=== PATIENT | female | born 1945 | race Caucasian/White ===

== ENCOUNTER 2018-11-12 13:38 | Emergency (ER) | payer MEDICARE, OTHER ==
[~2018-11-12] VITALS: Ht 160 cm; Wt 54.5 kg
[2018-11-12 14:14] LABS: BASO % 0.3 % (0.0-2.0); EOS % 0.3 % (0-4.0); GRAN # 4.4 (1.4-6.5); GRAN % 72.3 % (42.2-75.2); HEMATOCRIT 41.5 % (37.0-47.0); LYMPH % 16.9 % (20.0-51.0); MEAN CELL VOLUME 96 fl (80.0-100.0); MEAN CORPUSCULAR HEMOGLOBIN 32 pg (27.0-31.0); MEAN CORPUSCULAR HGB CONC 34 g/dl (33.0-37.0); MEAN PLATELET VOLUME 11.2 fl (7.4-10.4); MONO # 0.6 (0.1-0.6); MONO % 9.9 % (1.7-9.3); PLATELET COUNT 165 K/mm3 (130-400); RED BLOOD COUNT 4.32 M/mm3 (4.10-5.30); REDCELL DISTRIBUTION WIDTH-CV 13.1 % (11.5-14.5)
[2018-11-12] MEDS ORDERED: BETAPACE 80MG80 MG PO (14:18)
[2018-11-12 14:26] LABS: ALBUMIN 3.9 gm/dL (3.5-5.0); BILIRUBIN,TOTAL 0.8 mg/dL (0.0-1.0); CALCIUM 8.9 mg/dL (8.4-10.2); CREATININE, serum 0.72 mg/dL (0.52-1.25); POTASSIUM 4.3 mmol/L (3.4-5.0); TOTAL PROTEIN 7.6 gm/dL (6.4-8.2)
[2018-11-12] MEDS ORDERED: AMOXICILLIN 8751 TAB PO (14:53)
[2018-11-12 15:33] LABS: COLLECTION METHOD CLEAN CATCH
[2018-11-12 15:40] VITALS: BP 117/63; PULSE 65; TEMP 98
[2018-11-12 15:54] LABS: MUCOUS Present /lpf; PH 5 (5-8); SQUAMOUS EPITHELIAL 0-2 /hpf; URINE APPEARANCE Clear; URINE BACTERIA None Seen /hpf; URINE BILIRUBIN Negative (NEGATIVE); URINE BLOOD 1+ (NEGATIVE); URINE COLOR Yellow; URINE GLUCOSE Negative (NEGATIVE); URINE KETONE Negative (NEGATIVE); URINE LEUKOCYTE ESTERASE Trace (NEGATIVE); URINE NITRATE Negative (NEGATIVE); URINE PROTEIN(semi-quant) 1+ (NEGATIVE); URINE UROBILINOGEN Negative (NEGATIVE)
== END 2018-11-12 15:40 | disposition home or self-care (01) ==
LOC: COL.ER 13:38
PROVIDERS: Family Medicine
DX: I48.92 Unspecified atrial flutter (principal); J18.1 Lobar pneumonia, unspecified organism
CPT/HCPCS: A4216; J0696; J7030

== ENCOUNTER 2021-06-23 21:22 | Emergency (ER) | payer MEDICARE, OTHER ==
[~2021-06-23] VITALS: Ht 160 cm; Wt 54.5 kg
[~2021-06-23 21:22] MED LIST: AMOXICILLIN 8751 TAB PO; BETAPACE 80MG80 MG PO
[2021-06-23 23:16] LABS: COLLECTION METHOD CLEAN CATCH
[2021-06-23 23:24] LABS: PH 5 (5-8); SQUAMOUS EPITHELIAL None Seen /hpf; URINE APPEARANCE Clear; URINE BACTERIA None Seen /hpf; URINE BILIRUBIN Negative (NEGATIVE); URINE BLOOD Negative (NEGATIVE); URINE COLOR Yellow; URINE GLUCOSE 1+ (NEGATIVE); URINE KETONE Negative (NEGATIVE); URINE LEUKOCYTE ESTERASE 1+ (NEGATIVE); URINE NITRATE Negative (NEGATIVE); URINE PROTEIN(semi-quant) Negative (NEGATIVE); URINE RBC 0-2 /hpf; URINE UROBILINOGEN Negative (NEGATIVE)
[2021-06-23] MEDS ORDERED: OMNICEF 300MG300 MG PO (23:50)
[2021-06-24 00:01] VITALS: BP 138/73; PULSE 68; TEMP 98.9
[2021-08-12] MEDS ORDERED: NAPROSYN500 MG PO (21:19)
== END 2021-06-24 00:05 | disposition home or self-care (01) ==
LOC: COL.ER 21:22
PROVIDERS: Emergency Medicine
DX: N30.90 Cystitis, unspecified without hematuria (principal); R73.9 Hyperglycemia, unspecified; I10 Essential (primary) hypertension

== ENCOUNTER 2022-02-15 14:39 | Emergency (ER) | payer MEDICARE, OTHER ==
[~2022-02-15] VITALS: Ht 157.5 cm; Wt 61.4 kg
[~2022-02-15 14:39] MED LIST changes: +NAPROSYN500 MG PO; +OMNICEF 300MG300 MG PO
[2022-02-15 15:00] VITALS: TEMP 97.6
[2022-02-15 15:53] LABS: COLLECTION METHOD CLEAN CATCH
[2022-02-15 16:04] LABS: MUCOUS Present (NOT PRESENT); PH 6 (5-8); SQUAMOUS EPITHELIAL 0-2 /hpf (0-10); URINE APPEARANCE Hazy (CLEAR/HAZY); URINE BACTERIA Rare /hpf (NONE SEEN); URINE BILIRUBIN Negative (NEGATIVE); URINE BLOOD Negative (NEGATIVE); URINE COLOR Yellow (YELLOW); URINE GLUCOSE Negative (NEGATIVE); URINE KETONE Negative (NEGATIVE); URINE LEUKOCYTE ESTERASE 3+ (NEGATIVE); URINE NITRATE Negative (NEGATIVE); URINE PROTEIN(semi-quant) 1+ (NEGATIVE); URINE UROBILINOGEN Negative (NEGATIVE)
[2022-02-15 16:21] LABS: BASO % 0.3 % (0.0-2.0); EOS % 0.6 % (0.0-4.0); GRAN # 5.4 K/mm3 (1.4-6.5); HEMATOCRIT 38.9 % (37.0-47.0); HEMOGLOBIN 13.5 g/dl (12.5-16.0); LYMPH # 0.9 K/mm3 (1.2-3.4); LYMPH % 13.6 % (20.0-51.0); MEAN CELL VOLUME 94 fl (80.0-100.0); MEAN CORPUSCULAR HEMOGLOBIN 33 pg (27-31); MEAN CORPUSCULAR HGB CONC 35 g/dl (33.0-37.0); MONO # 0.3 K/mm3 (0.1-0.6); MONO % 5.1 % (1.7-9.3); PLATELET COUNT 164 K/mm3 (130-400); RED BLOOD COUNT 4.14 M/mm3 (4.10-5.30)
[2022-02-15 16:36] LABS: ALBUMIN 3.7 gm/dL (3.4-4.8); C-REACTIVE PROTEIN 0.16 mg/dL (0.00-0.50); CALCIUM 8.8 mg/dL (8.4-10.2); CREATININE, serum 0.75 mg/dL (0.57-1.11); POTASSIUM 4.2 mmol/L (3.5-4.5); TOTAL PROTEIN 6.9 gm/dL (6.2-8.1)
[2022-02-15] MEDS ORDERED: OMNICEF 300MG300 MG PO (17:16)
[2022-02-15 17:53] VITALS: BP 144/78; PULSE 59
== END 2022-02-15 17:53 | disposition home or self-care (01) ==
LOC: COL.ER 14:39
PROVIDERS: Family Medicine
DX: F32.A Depression, unspecified (principal); R53.1 Weakness; N39.0 Urinary tract infection, site not specified
CPT/HCPCS: J2405; J7120

== ENCOUNTER 2022-03-04 19:52 | Inpatient (IN) | payer MEDICARE, OTHER ==
[~2022-03-04] VITALS: Ht 157.5 cm; Wt 69.3 kg
[2022-03-04] MEDS ORDERED: PRISTIQ25 MG PO (20:41)
[2022-03-04 21:04] LABS: BASO % 0.3 % (0.0-2.0); EOS # 0.1 K/mm3 (0.0-0.7); EOS % 1.5 % (0.0-4.0); GRAN # 3.1 K/mm3 (1.4-6.5); GRAN % 52.2 % (42.2-75.2); HEMATOCRIT 41.5 % (37.0-47.0); HEMOGLOBIN 14.1 g/dl (12.5-16.0); LYMPH # 2.1 K/mm3 (1.2-3.4); LYMPH % 36.6 % (20.0-51.0); MEAN CELL VOLUME 97 fl (80.0-100.0); MEAN CORPUSCULAR HEMOGLOBIN 33 pg (27-31); MEAN CORPUSCULAR HGB CONC 34 g/dl (33.0-37.0); MEAN PLATELET VOLUME 11.6 fl (7.4-10.4); MONO # 0.5 K/mm3 (0.1-0.6); MONO % 8.9 % (1.7-9.3); PLATELET COUNT 201 K/mm3 (130-400); RED BLOOD COUNT 4.28 M/mm3 (4.10-5.30); REDCELL DISTRIBUTION WIDTH-CV 13.2 % (11.5-14.5)
[2022-03-04 21:23] LABS: COLLECTION METHOD CATHETER
[2022-03-04 21:27] LABS: ALBUMIN 3.7 gm/dL (3.4-4.8); BILIRUBIN,TOTAL 0.7 mg/dL (0.2-1.2); CALCIUM 8.8 mg/dL (8.4-10.2); CREATININE, serum 0.96 mg/dL (0.57-1.11); POTASSIUM 4.3 mmol/L (3.5-4.5)
[2022-03-04 21:32] LABS: MUCOUS Present (NOT PRESENT); PH 5 (5-8); URINE APPEARANCE Cloudy (CLEAR/HAZY); URINE BACTERIA Rare /hpf (NONE SEEN); URINE BILIRUBIN Negative (NEGATIVE); URINE BLOOD Negative (NEGATIVE); URINE COLOR Amber (YELLOW); URINE GLUCOSE Negative (NEGATIVE); URINE KETONE Trace (NEGATIVE); URINE LEUKOCYTE ESTERASE 3+ (NEGATIVE); URINE NITRATE Negative (NEGATIVE); URINE PROTEIN(semi-quant) 1+ (NEGATIVE); URINE RBC 20-50 /hpf (0-2); URINE UROBILINOGEN Negative (NEGATIVE)
[2022-03-04 21:48] LABS: TSH w REFLEX 2.778 uIU/mL (0.350-4.940)
[2022-03-05] VITALS (7 sets, daily range): BP systolic 142–164; BP diastolic 46–94; PULSE 45–104; TEMP 97.3–98.1
--- NOTE | 2022-03-05 00:56 | NUR ---
PATIENT UP TO ROOM 325. ALERT AND PARTIALLY ORIENTED. PATIENT PIVOT TRANSFERRED TO BED AND WAS VERY SHAKY PER REPORT FROM DRAFTER (CAD) ELECTRONIC. ATTEMPTED MED RX AND ADMISSION FORMS, PATIENT ANSWERING NO TO EVERY QUESTION. TELE IN PLACE. IV TO R WRIST WRAPPED WITH COBAN. DISCUSSED WITH HOSPITALIST ROBY. NO NEW ORDERS AT THIS TIME.
[2022-03-05 07:01] LABS: CALCIUM 8.9 mg/dL (8.4-10.2); CREATININE, serum 0.83 mg/dL (0.57-1.11); POTASSIUM 4.3 mmol/L (3.5-4.5)
--- NOTE | 2022-03-05 11:34 | NUR ---
Mechanical Sound Technician collaborated with DAWN Xavier about discharge planning for patient. Morenita advised patient may benefit from radha-psych, however waiting on recommendations from neurology and psychiatry to evaluate. Morenita reports patient has UTI at this time. Psych consult is ordered and psychiatrist is secondary english teacher tomorrow. HANY contacted patient's son, Kenji (ph#[phone]) to complete intake as patient is in a procedure and has also been confused. Kenji advised patient lives with him in [place] and sees Dr. Bowens for primary care. Kenji picks up patient's medications from [facility] and advised patient does not use any DME. Kenji reported that patient is normally independent with ADLS, however he advised that she has been diagnosed with major depressive disorder with catatonic features that sometimes affects her self care abilities. Patient sees Dr. Tripathi, Psychiarist at [facility]. Kenji advised patient does not have DPOA-HC at this time. Patient is and has two children: Kenji and Carmen (ph#[phone]). HANY advised Kenji that she is here to assist with dischare planning recommendations after neuro/psych evals. Discharge planning: Awaiting recs from Neuro and Inez
--- NOTE | 2022-03-05 18:36 | NUR ---
Patient was lethargic today and slept most of the day; patient had no complaints of pain but remained confused throughout the day.
--- NOTE | 2022-03-06 01:45 | NUR ---
PATIENT MINIMALLY RESPONSIVE IN CONVERSATION. FOLLOWS COMMANDS BUT NEEDS LOTS OF PROMPTING. ASSISTED TO COMMODE WITH PIVOT ASSIST OF 2, PATIENT DID NOT VOID. RETURNED TO BED.
[2022-03-06 04:28] VITALS: BP 118/82; PULSE 58; TEMP 97.4
[2022-03-06 06:25] LABS: BASO % 0.5 % (0.0-2.0); EOS # 0.1 K/mm3 (0.0-0.7); EOS % 1.2 % (0.0-4.0); GRAN # 2.5 K/mm3 (1.4-6.5); GRAN % 58.2 % (42.2-75.2); HEMATOCRIT 44.6 % (37.0-47.0); HEMOGLOBIN 15.1 g/dl (12.5-16.0); LYMPH # 1.3 K/mm3 (1.2-3.4); LYMPH % 31.4 % (20.0-51.0); MEAN CELL VOLUME 98 fl (80.0-100.0); MEAN CORPUSCULAR HEMOGLOBIN 33 pg (27-31); MEAN CORPUSCULAR HGB CONC 34 g/dl (33.0-37.0); MEAN PLATELET VOLUME 11.6 fl (7.4-10.4); MONO # 0.4 K/mm3 (0.1-0.6); MONO % 8.5 % (1.7-9.3); PLATELET COUNT 186 K/mm3 (130-400); RED BLOOD COUNT 4.55 M/mm3 (4.10-5.30)
[2022-03-06 06:33] LABS: CALCIUM 9.4 mg/dL (8.4-10.2); CREATININE, serum 0.84 mg/dL (0.57-1.11); POTASSIUM 4.4 mmol/L (3.5-4.5)
--- NOTE | 2022-03-06 07:21 | NUR ---
rounded, she saw patient, but going to call patient son as well.
[2022-03-06 07:37] VITALS: BP 117/87; PULSE 58; TEMP 98
--- NOTE | 2022-03-06 08:25 | NUR ---
Patient resting in bed. Breakfast ordered. Patient not oriented, she knew the year she was born not month or date. Patient did not know where she is, reoriented her to place and time. Patient spit out her pristiq, tried to get her to take, but she did not want. Educated her on Lovenex that was given. Patient not very happy happy this am, wanting to rest and be left alone. High fall risk protocol followed. Will monitor.
--- NOTE | 2022-03-06 11:19 | NUR ---
[place]alia: Pent[employer] Situation: Movie Operator stopped by on rounds Background: PT has been resting Assessment: PT seems content Recommendation: big data analytics lead will follow up as needed
[2022-03-06 11:47] VITALS: BP 154/75; PULSE 62; TEMP 98.1
--- NOTE | 2022-03-06 14:24 | NUR ---
Patient resting in bed. rounded. EGG ordered. She had minimal appetite. She took her betablocker without troubles. Per nino
--- NOTE | 2022-03-06 15:02 | NUR ---
Home Appliance Washing Machine Mechanic contacted patient's son, Kenji to discuss recommendation for radha psych. Kenji advised he is unsure if this would be helpful to patient. HANY advised this is our psychiatrist and hospitalist recommendation. HANY advised Kenji that hospitalist does not feel patient returning home is a good option at this time. Kenji would like to discuss this with his sister then talk with web content & social media manager about it in the morning.
--- NOTE | 2022-03-06 15:43 | NUR ---
Patient found to have her Iv lying on bedside table. New Iv to be started when she is done working with speech therapy. Will monitor.
[2022-03-06 16:00] VITALS: BP 137/81; PULSE 71; TEMP 97.5
--- NOTE | 2022-03-06 18:21 | NUR ---
Patient ate minimally for dinner. Reports not feeling well, offered a sprite and crakers. Also offered to take her to the bathroom. Will monitor closely
[2022-03-06 20:01] VITALS: BP 124/67; PULSE 66; TEMP 97.6
[2022-03-07 00:20] VITALS: BP 134/55; PULSE 55; TEMP 98.7
--- NOTE | 2022-03-07 01:44 | NUR ---
PATIENT CONTENT AT SHIFT CHANGE. ALERT BUT CONFUSED AND COULD NOT ANSWER ANY QUESTIONS EXCEPT FOR HER NAME AND BIRTHDAY. NEW 22 G IV STARTED TO L FA AND JENNIE WRAPPED TO AVOID LOSING ANOTHER SITE. MEDS PER EMAR. PATIENT VERY TIRED AND RESTING IN BED.
[2022-03-07 04:36] VITALS: BP 131/61; PULSE 51; TEMP 97.8
[2022-03-07 07:39] VITALS: BP 127/65; PULSE 58; TEMP 97.7
[2022-03-07] MEDS ORDERED: OMNICEF 300MG300 MG PO (09:13)
--- NOTE | 2022-03-07 10:12 | NUR ---
Operations Support Professionals met with patient and patient's son, Kenji to discuss discharge planning. Kenji is aware of recommendation for radha psych but after discussing with his sister, he plans to take patient home today. SW discussed Home Health services with Kenji who advised he works for home and feels he is equipped to care for patient. Kenji stated that he and his sister plan to take patient to follow up with neurology after discharge. Discharge Plan: Home
== END 2022-03-07 12:00 | disposition home or self-care (01) | DRG 689 ==
LOC: COL.ER 19:52 → SURG 22:09
PROVIDERS: Personal Emergency Response Attendant; Physician Assistant; ADMIT Internal Medicine
DX: N39.0 Urinary tract infection, site not specified (principal); G93.41 Metabolic encephalopathy; F32.A Depression, unspecified; B96.89 Other specified bacterial agents as the cause of diseases classified elsewhere; I48.91 Unspecified atrial fibrillation; F41.9 Anxiety disorder, unspecified
CPT/HCPCS: 99222-AI; 99233-AI; 99239; A9575; G0378; J0696; J1650

== ENCOUNTER 2022-04-08 15:30 | Outpatient (RCR) | payer MEDICARE, OTHER ==
[~2022-04-08 15:30] MED LIST changes: +PRISTIQ25 MG PO
== END 2022-04-11 | disposition home or self-care (01) ==
LOC: WSST
DX: R53.1 Weakness (principal)

== ENCOUNTER 2023-01-10 15:13 | Outpatient (CLI) | payer MEDICARE, OTHER ==
[~2023-01-10] VITALS: Ht 160 cm; Wt 54.5 kg
[~2023-01-10 15:13] MED LIST changes: +LAMICTAL 100MG100 MG PO; +LIPITOR20 MG PO; +PRISTIQ 50 MG T50 MG PO; +TOPROL XL 25MG25 MG PO; +ZYPREXA 5MG5 MG PO
[2023-01-10 15:34] VITALS: BP 120/60; PULSE 76; TEMP 97.2
[2023-01-10 15:49] LABS: CALCIUM 8.7 mg/dL (8.4-10.2); CREATININE, serum 0.74 mg/dL (0.57-1.11); POTASSIUM 3.6 mmol/L (3.5-4.5)
[2023-01-10] MEDS ORDERED: SENNA-LAX8.6 MG PO (15:54)
[2023-01-10] MEDS ORDERED: MULTI VITAMINS1 TAB PO (15:54)
[2023-01-10] MEDS ORDERED: TYLENOL 500MG500 MG PO (15:55)
[2023-01-10] MEDS ORDERED: VERAPAMIL 440 MG/TAB PO (15:56)
[2023-01-10] MEDS ORDERED: ZOFRAN 4MG T4 MG/TAB PO (15:56)
[2023-01-10] MEDS ORDERED: PROTONIX20 MG PO (15:57)
[2023-01-10] MEDS ORDERED: MIRALAX PA17 GM/Dose PO (15:57)
[2023-01-10] MEDS ORDERED: ASPIRIN 81M81 MG/TA2 PO (15:58)
[2023-01-10] MEDS ORDERED: THIAMINE 1100 MG/TAB PO (15:59)
[2023-01-10] MEDS ORDERED: SINEMET 25/101 UDTAB PO (16:00)
[2023-01-10] MEDS ORDERED: ATIVAN 0.50.5 MG/TAB PO (16:01)
[2023-01-10] MEDS ORDERED: MIRTAZAPINE7.5 MG PO (16:01)
[2023-01-10] MEDS ORDERED: FOLIC ACID 11 MG/TA1 PO (16:02)
--- NOTE | 2023-01-10 16:36 | NUR ---
pt tolerates fluid infusion well. she had remained sitting in the chair but she does pick and pull at things in her lap like the blanket and BP cuff. so far she has not tried to remove her IV. she is not oriented to person, place, or situation and is not an accurate historian for medical history questions. daughter helps to answer most of the questions. pt is x1 assist to move from wheelchair to recliner. VS are within normal limits. pt is covid positive but is not currently running a fever or presenting with symptoms.
== END 2023-01-10 18:00 | disposition home or self-care (01) ==
LOC: EUO 15:13
PROVIDERS: Family Medicine
DX: E87.0 Hyperosmolality and hypernatremia (principal); E86.0 Dehydration
CPT/HCPCS: J7030

== ENCOUNTER 2023-11-19 18:11 | Emergency (ER) | payer MEDICARE, OTHER ==
[~2023-11-19] VITALS: Ht 160 cm; Wt 52.3 kg
[~2023-11-19 18:11] MED LIST changes: +ASPIRIN 81M81 MG/TA2 PO; +ATIVAN 0.50.5 MG/TAB PO; +FOLIC ACID 11 MG/TA1 PO; +MIRALAX PA17 GM/Dose PO; +MIRTAZAPINE7.5 MG PO; +MULTI VITAMINS1 TAB PO; +PROTONIX20 MG PO; +SENNA-LAX8.6 MG PO; +SINEMET 25/101 UDTAB PO; +THIAMINE 1100 MG/TAB PO; +TYLENOL 500MG500 MG PO; +VERAPAMIL 440 MG/TAB PO; +ZITHROMAX500 M2 PO; +ZOFRAN 4MG T4 MG/TAB PO
[2023-11-19 18:17] VITALS: TEMP 98.2
[2023-11-19] MEDS ORDERED: NS 1,000 ML IV ONE (18:45)
[2023-11-19 19:37] LABS: BASO % 0.3 % (0.0-2.0); EOS % 0.9 % (0.0-4.0); GRAN # 1.8 K/mm3 (1.4-6.5); GRAN % 50.8 % (42.2-75.2); HEMATOCRIT 37.4 % (37.0-47.0); HEMOGLOBIN 12.7 g/dl (12.5-16.0); LYMPH # 1.1 K/mm3 (1.2-3.4); LYMPH % 32.3 % (20.0-51.0); MEAN CELL VOLUME 97 fl (80.0-100.0); MEAN CORPUSCULAR HEMOGLOBIN 33 pg (27-31); MEAN CORPUSCULAR HGB CONC 34 g/dl (33.0-37.0); MONO # 0.5 K/mm3 (0.1-0.6); MONO % 15.1 % (1.7-9.3); PLATELET COUNT 161 K/mm3 (130-400); RED BLOOD COUNT 3.85 M/mm3 (4.10-5.30); REDCELL DISTRIBUTION WIDTH-CV 13.1 % (11.5-14.5)
[2023-11-19 19:37] LABS: COLLECTION METHOD CATHETER
[2023-11-19 19:42] LABS: ALANINE AMINOTRANSFERASE 7 U/L (0-55); ALBUMIN 3.2 gm/dL (3.4-4.8); ALKALINE PHOSPHATASE 67 U/L (40-150); ANION GAP 11 mmol/L (7-16); AST,SGOT 18 U/L (5-34); BILIRUBIN,TOTAL 0.7 mg/dL (0.2-1.2); BLOOD UREA NITROGEN 15 mg/dL (10-20); C-REACTIVE PROTEIN 1.99 mg/dL (0.00-0.50); CALCIUM 8.9 mg/dL (8.4-10.2); CARBON DIOXIDE 22 mmol/L (23-31); CHLORIDE 106 mmol/L (98-107); CREATININE, serum 0.71 mg/dL (0.57-1.11); GLUCOSE 128 mg/dL (70-99); POTASSIUM 4.2 mmol/L (3.5-4.5); SODIUM 139 mmol/L (136-145); TOTAL PROTEIN 7.1 gm/dL (6.2-8.1)
[2023-11-19 19:50] LABS: TROPONIN-I < 0.010 ng/mL (0.00-0.033)
[2023-11-19 20:16] LABS: PH 5.5 (5.0-8.5); URINE APPEARANCE Hazy (CLEAR/HAZY); URINE BLOOD Negative (NEGATIVE); URINE COLOR Yellow (YELLOW); URINE GLUCOSE Negative (NEGATIVE); URINE KETONE Negative (NEGATIVE); URINE NITRATE Negative (NEGATIVE); URINE PROTEIN(semi-quant) TRACE (NEGATIVE); URINE UROBILINOGEN 0.2 E.U/dL (0.2-1.0)
[2023-11-19 20:17] LABS: URINE BACTERIA Occasional /hpf (NONE SEEN)
[2023-11-19 20:18] LABS: MUCOUS Present (NOT PRESENT); SQUAMOUS EPITHELIAL 0-2 /hpf (0-10); URINE RBC None Seen /hpf (0-2)
[2023-11-19 21:07] VITALS: BP 171/82; PULSE 58
== END 2023-11-19 21:19 | disposition home or self-care (01) ==
LOC: COL.ER 18:11
PROVIDERS: Nurse Practitioner
DX: J20.9 Acute bronchitis, unspecified (principal); Z87.891 Personal history of nicotine dependence
CPT/HCPCS: J7030

== ENCOUNTER 2024-02-15 00:25 | Inpatient (IN) | payer MEDICARE, OTHER ==
[~2024-02-15] VITALS: Ht 157.5 cm; Wt 60.0 kg
[2024-02-15] VITALS (7 sets, daily range): BP systolic 153–177; BP diastolic 67–80; PULSE 63–77; TEMP 97.3–98.3
[2024-02-15] MEDS ORDERED: LORazepam 2 MG/ML 1 ML VIAL IV ONE (00:45)
[2024-02-15] MEDS ORDERED: NS 1,000 ML IV ONE (00:45)
[2024-02-15 01:26] LABS: ALANINE AMINOTRANSFERASE 11 U/L (0-55); ALBUMIN 3.6 g/dL (3.4-4.8); ALKALINE PHOSPHATASE 92 U/L (40-150); ANION GAP 11 mmol/L (7-16); AST,SGOT 12 U/L (5-34); BILIRUBIN,TOTAL 0.4 mg/dL (0.2-1.2); BLOOD UREA NITROGEN 22 mg/dL (10-20); CALCIUM 9.1 mg/dL (8.4-10.2); CHLORIDE 109 mEq/L (98-107); CREATININE, serum 0.94 mg/dL (0.57-1.11); GLUCOSE 104 mg/dL (70-99); SODIUM 143 mEq/L (136-145); TOTAL PROTEIN 6.9 g/dl (6.2-8.1)
[2024-02-15 01:32] LABS: TROPONIN-I < 0.010 ng/mL (0.00-0.033)
[2024-02-15 02:04] LABS: BASO % 0.5 % (0.0-2.0); EOS # 0.1 K/mm3 (0.0-0.7); EOS % 1.6 % (0.0-4.0); GRAN # 2.5 K/mm3 (1.4-6.5); GRAN % 56.9 % (42.2-75.2); HEMATOCRIT 39.5 % (37.0-47.0); HEMOGLOBIN 13.4 g/dl (12.5-16.0); LYMPH # 1.4 K/mm3 (1.2-3.4); LYMPH % 30.8 % (20.0-51.0); MEAN CELL VOLUME 97 fl (80.0-100.0); MEAN CORPUSCULAR HEMOGLOBIN 33 pg (27-31); MEAN CORPUSCULAR HGB CONC 34 g/dl (33.0-37.0); MONO # 0.4 K/mm3 (0.1-0.6); MONO % 9.5 % (1.7-9.3); PLATELET COUNT 167 K/mm3 (130-400); RED BLOOD COUNT 4.07 M/mm3 (4.10-5.30); REDCELL DISTRIBUTION WIDTH-CV 13.1 % (11.5-14.5)
[2024-02-15 03:48] LABS: COLLECTION METHOD CATHETER
[2024-02-15 05:33] LABS: URINE APPEARANCE CLEAR (CLEAR/HAZY); URINE BLOOD NEGATIVE (NEGATIVE); URINE COLOR YELLOW (YELLOW); URINE GLUCOSE NEGATIVE (NEGATIVE); URINE KETONE NEGATIVE (NEGATIVE); URINE NITRATE NEGATIVE (NEGATIVE); URINE PROTEIN(semi-quant) TRACE (NEGATIVE); URINE UROBILINOGEN 0.2 E.U/dL (0.2-1.0)
--- NOTE | 2024-02-15 07:25 | NUR ---
Patient arrived to the medical unit, room 316 by bed, with her daughter Carmen.
[2024-02-15] MEDS ORDERED: MELATONIN5 M1 SL (07:39)
[2024-02-15] MEDS ORDERED: MAGNESIUM200 MG PO (07:39)
[2024-02-15] MEDS ORDERED: Acetaminophen 500 MG TAB PO PRN (08:30)
[2024-02-15] MEDS ORDERED: NS 1,000 ML IV SCH (08:45)
--- NOTE | 2024-02-15 11:28 | NUR ---
HANY was informed by nurse that it would benefical to call family to complete intake. SW called daughter Carmen Harvey [phone]. Daughter provides that patient lives with her brother Kenji Chavarria [phone] who is DPOA/HC along with Carmen. Patient obtains assistance at home and primarily utilizes a wheel chair and assistance 2 times per week from [facility], PCP is Dr Singh, pharmacy is [facility]. Carmen stated the current plan is for patient to return to her brothers home, but open to what is recommended. HANY obtained referral providing recommendations of home vs LTC vs respite. Carmen provided information of resources upon arrival when visiting. HANY will continue to follow. Discharge plan: home
[2024-02-15] MEDS ORDERED: QUEtiapine 25 MG TAB PO PRN (16:15)
--- NOTE | 2024-02-15 17:14 | NUR ---
Patient is resting in bed with close eyes. Easily arousable. She is calm. Receiving fluids per orders. Family states they will be back later.
[2024-02-15] MEDS ORDERED: Magnesium Gluconate 500 MG TAB PO SCH (21:00)
[2024-02-15] MEDS ORDERED: LORazepam 0.5 MG TAB PO SCH (21:00)
[2024-02-15] MEDS ORDERED: Melatonin 3 MG TAB PO SCH (21:00)
--- NOTE | 2024-02-15 21:00 | NUR ---
Pt. laying in bed. Pt. is alert but confused. IV to rt. forearm patent. Pt. does not appear to be in pain per FLACC scale. Pt. denies further needs, Bed alarm on.
[2024-02-16] VITALS (15 sets, daily range): BP systolic 127–178; BP diastolic 57–82; PULSE 50–104; TEMP 97.3–99
--- NOTE | 2024-02-16 08:45 | NUR ---
pt a&ox1 resting in bed. vss and tele in place. right wrist IV patent. pt incontinent of urine, da care provided. pt npo for MRI of brain this morning. fall precautions in place. call light in reach.
[2024-02-16 09:07] LABS: BASO % 0.3 % (0.0-2.0); EOS # 0.1 K/mm3 (0.0-0.7); EOS % 1.8 % (0.0-4.0); GRAN # 1.6 K/mm3 (1.4-6.5); GRAN % 47.1 % (42.2-75.2); HEMATOCRIT 36.1 % (37.0-47.0); HEMOGLOBIN 12.4 g/dl (12.5-16.0); LYMPH # 1.4 K/mm3 (1.2-3.4); LYMPH % 41.8 % (20.0-51.0); MEAN CELL VOLUME 96 fl (80.0-100.0); MEAN CORPUSCULAR HEMOGLOBIN 33 pg (27-31); MEAN CORPUSCULAR HGB CONC 34 g/dl (33.0-37.0); MEAN PLATELET VOLUME 11.2 fl (7.4-10.4); MONO # 0.3 K/mm3 (0.1-0.6); MONO % 8.7 % (1.7-9.3); PLATELET COUNT 140 K/mm3 (130-400); RED BLOOD COUNT 3.77 M/mm3 (4.10-5.30); REDCELL DISTRIBUTION WIDTH-CV 13.1 % (11.5-14.5)
[2024-02-16 09:24] LABS: CALCIUM 8.6 mg/dL (8.4-10.2); CREATININE, serum 0.7 mg/dL (0.57-1.11); POTASSIUM 3.7 mEq/L (3.5-4.5)
--- NOTE | 2024-02-16 11:30 | NUR ---
pt off floor for MRI
[2024-02-16] MEDS ORDERED: Gadoterate 15 ML VIAL IV ONE (11:44)
[2024-02-16] MEDS ORDERED: hydrALAZINE 20 MG/ML 1 ML VIAL IV PRN (13:15)
--- NOTE | 2024-02-16 16:34 | NUR ---
Macaroni Press Operator reviewed recommendation from Psychiatry for [facility]. HANY faxed referral to [facility], [facility], [place] [facility], [facility], [facility], [facility], [facility], [facility], and [facility] [place]. HANY contacted patient's daughter, Carmen to touch base on referrals. Carmen advised she and her brother, Kenji were present for the telehealth psych consult. HANY followed up with patient's son, Kenji who is at bedside. Kenji advised he and Carmen are co-guardians and provided guardianship documents, which HANY placed on chart. Kenji questioned recommendation for geripsych and inquired if patient could go home with outpatient follow up. HANY followed up with Hospitalist who advised patient would not be safe to return home at this time due to suicidal ideations and hallucenations. HANY spoke with Phylicia at [facility], Naomy at [facility], and Indu at [facility]. Each indicated they would be able to accept and requested a covid test prior to admit. HANY followed up with Carmen to provide update on accepting facilities. Carmen plans to meet with Kenji quintanilla and discuss options. One of their main concerns is meeting patient's nutritional needs as she requires assistance with eating and needs to be fed per family. Discharge Plan: [facility]
--- NOTE | 2024-02-16 21:20 | NUR ---
pt awake resting in bed, family at bedside. vss and tele in place. pt having hallucinations and experiencing agitation, prn seroquel given. pt incontinent of urine, da care provided. call light in reach. fall precautions in place.
[2024-02-17] VITALS (9 sets, daily range): BP systolic 123–153; BP diastolic 67–88; PULSE 64–96; TEMP 97.3–99
--- NOTE | 2024-02-17 00:15 | NUR ---
Resumed cares from Chanell PERDOMO. Patient resting in bed, eyes closed, looks comfortable.
--- NOTE | 2024-02-17 06:34 | NUR ---
Patient incontinent of urine at this time, pericare provided, repositioned to her right side.
[2024-02-17 06:47] LABS: BASO % 0.2 % (0.0-2.0); EOS % 0.2 % (0.0-4.0); GRAN # 3.3 K/mm3 (1.4-6.5); GRAN % 75.2 % (42.2-75.2); HEMATOCRIT 37.8 % (37.0-47.0); LYMPH # 0.7 K/mm3 (1.2-3.4); LYMPH % 16.7 % (20.0-51.0); MEAN CELL VOLUME 94 fl (80.0-100.0); MEAN CORPUSCULAR HEMOGLOBIN 32 pg (27-31); MEAN CORPUSCULAR HGB CONC 34 g/dl (33.0-37.0); MEAN PLATELET VOLUME 11.4 fl (7.4-10.4); MONO # 0.3 K/mm3 (0.1-0.6); MONO % 7.2 % (1.7-9.3); PLATELET COUNT 156 K/mm3 (130-400); RED BLOOD COUNT 4.01 M/mm3 (4.10-5.30)
[2024-02-17 07:11] LABS: CALCIUM 8.6 mg/dL (8.4-10.2); CREATININE, serum 0.76 mg/dL (0.57-1.11); POTASSIUM 3.6 mEq/L (3.5-4.5)
--- NOTE | 2024-02-17 11:41 | NUR ---
Patient alert to self only, shift assessment complete this morning. Able to follow simple verbal commands, unable to clearly answer questions. No signs of pain noted, patient resting with eyes closed. No agitation or aggression noted. Bed alarm on, call light within reach, family member at bedside.
[2024-02-17] MEDS ORDERED: TOPROL XL 25MG25 MG PO (15:43)
[2024-02-17] MEDS ORDERED: SEROQUEL 2525 MG/TAB PO (15:44)
--- NOTE | 2024-02-17 16:05 | NUR ---
Correction Worker attended clinical rounds with the team. HANY updated son, Kenji who is at bedside on accepting facility, [facility]. Hospitalist advised patient is ready for discharge today and explained the reasoning behind the recommendation. Kenji stated he still has "cold feet" about it. Kenji was willing to speak with the liason from [facility] today though and would also talk with his sister about it. HANY contacted Shanna at [facility] and faxed clinical updates. Shanna advised they can accept today and that she will call Kenji. HANY called Kenji to follow up and he stated he did have a conversation with Shanna at [facility]. Kenji is going to a quick appointment with his PCP then will follow up with HANY. HANY spoke with Kenji at bedside following his appointment and he stated he had a good conversation with Dr. Wayne, his PCP who is also patient's PCP. Kenji also stated he discussed this with the [place] SW, Shy. Kenji advised Dr. Wayne and Shy feel that going home with outpatient follow up (appointment scheduled for Friday) is a "good idea". Telehealth Psychiatry provider did a follow up telehealth visit with patient and son, Kenji and Kenji still wants to take patient home. HANY updated Hospitalist who will discharge patient home with HH services. HANY followed up with Kenji to discuss HH and provided the Medicare.gov list of HH agencies. Kenji is agreeable to this recommendation and selected [facility]. HANY contacted Porfirio at [facility] and faxed referral with discharge orders. HANY contacted accepting facility, [facility] to update them that patient is going home. This HANY notes that [facility] declined referral. Discharge Plan; Home with [facility]
--- NOTE | 2024-02-17 18:51 | NUR ---
Discharge orders obtained. Discharge paperwork discussed with son/DPOA including follow-up appointments, new medications, and education packets. Son verbalized understanding. IV discontinued to patient's right forearm with no complications. Telemetry off. Patient dressed and escorted out with son via wheelchair. No concerns voiced at time of discharge.
== END 2024-02-17 17:30 | disposition home health service (06) | DRG 881 ==
LOC: COL.ER 00:25 → MEDICAL 06:18
PROVIDERS: Emergency Medicine; Nurse Practitioner Family; ADMIT Hospitalist
DX: F32.A Depression, unspecified (principal); G21.0 Malignant neuroleptic syndrome; R53.2 Functional quadriplegia; G93.40 Encephalopathy, unspecified; R45.851 Suicidal ideations; F03.90 Unspecified dementia, unspecified severity, without behavioral disturbance, psychotic disturbance, mood disturbance, and anxiety; F41.9 Anxiety disorder, unspecified; R19.7 Diarrhea, unspecified
CPT/HCPCS: A9575; J0360; J2060; J7030; Q3014

== ENCOUNTER 2024-04-03 22:10 | Emergency (ER) | payer MEDICARE, OTHER ==
[~2024-04-03] VITALS: Ht 160 cm; Wt 52.3 kg
[~2024-04-03 22:10] MED LIST changes: +MAGNESIUM200 MG PO; +MELATONIN5 M1 SL; +SEROQUEL 2525 MG/TAB PO
[2024-04-03 22:22] VITALS: TEMP 98.4
[2024-04-04 00:54] LABS: BASO % 0.5 % (0.0-2.0); EOS # 0.1 K/mm3 (0.0-0.7); EOS % 1.6 % (0.0-4.0); GRAN # 3.4 K/mm3 (1.4-6.5); GRAN % 61.7 % (42.2-75.2); HEMATOCRIT 38.8 % (37.0-47.0); HEMOGLOBIN 12.7 g/dl (12.5-16.0); LYMPH # 1.5 K/mm3 (1.2-3.4); LYMPH % 26.6 % (20.0-51.0); MEAN CELL VOLUME 98 fl (80.0-100.0); MEAN CORPUSCULAR HEMOGLOBIN 32 pg (27-31); MEAN CORPUSCULAR HGB CONC 33 g/dl (33.0-37.0); MEAN PLATELET VOLUME 11.3 fl (7.4-10.4); MONO # 0.5 K/mm3 (0.1-0.6); MONO % 9.2 % (1.7-9.3); PLATELET COUNT 185 K/mm3 (130-400); RED BLOOD COUNT 3.97 M/mm3 (4.10-5.30); REDCELL DISTRIBUTION WIDTH-CV 13.7 % (11.5-14.5)
[2024-04-04 01:04] LABS: INR 1.1 (0.8-3.0); PROTHROMBIN TIME 11.6 SECONDS (9.7-12.8)
[2024-04-04 01:13] LABS: ALANINE AMINOTRANSFERASE 10 U/L (0-55); ALBUMIN 3.4 g/dL (3.4-4.8); ALKALINE PHOSPHATASE 84 U/L (40-150); ANION GAP 11 mmol/L (7-16); AST,SGOT 13 U/L (5-34); BILIRUBIN,TOTAL 0.4 mg/dL (0.2-1.2); BLOOD UREA NITROGEN 22 mg/dL (10-20); CALCIUM 8.9 mg/dL (8.4-10.2); CHLORIDE 109 mEq/L (98-107); CREATININE, serum 0.79 mg/dL (0.57-1.11); GLUCOSE 98 mg/dL (70-99); POTASSIUM 3.9 mEq/L (3.5-4.5); SODIUM 143 mEq/L (136-145)
[2024-04-04 01:19] LABS: COLLECTION METHOD CATHETER
[2024-04-04 01:25] LABS: TROPONIN-I < 0.010 ng/mL (0.00-0.033)
[2024-04-04 01:35] LABS: URINE APPEARANCE CLEAR (CLEAR/HAZY); URINE BLOOD NEGATIVE (NEGATIVE); URINE COLOR YELLOW (YELLOW); URINE GLUCOSE NEGATIVE (NEGATIVE); URINE KETONE NEGATIVE (NEGATIVE); URINE NITRATE NEGATIVE (NEGATIVE); URINE PROTEIN(semi-quant) TRACE (NEGATIVE); URINE UROBILINOGEN 0.2 E.U/dL (0.2-1.0)
[2024-04-04 01:45] LABS: MUCOUS PRESENT (NOT PRESENT); SQUAMOUS EPITHELIAL NONE SEEN /hpf (0-10); URINE BACTERIA RARE /hpf (NONE SEEN); URINE RBC NONE SEEN /hpf (0-2); URINE WBC None Seen /hpf (0-2)
[2024-04-04 01:48] LABS: ALCOHOL(ethanol),MEDICAL < 10 mg/dL (0-10); C-REACTIVE PROTEIN 0.33 mg/dL (0.00-0.50); CREATINE KINASE 37 U/L (29-168)
[2024-04-04 01:57] LABS: TSH w REFLEX 1.469 uIU/mL (0.350-4.940)
[2024-04-04] MEDS ORDERED: Iohexol 300 - 100 ML VIAL IV ONE (04:26)
[2024-04-04] MEDS ORDERED: NS 100 ML IV SCH (04:27)
[2024-04-04 07:45] VITALS: BP 161/77; PULSE 61
[2024-04-06 11:43] LABS: CLOSTRIDIUM DIFF A/B NEG
== END 2024-04-04 08:04 | disposition home or self-care (01) ==
LOC: COL.ER 22:10
PROVIDERS: Emergency Medicine
DX: F03.90 Unspecified dementia, unspecified severity, without behavioral disturbance, psychotic disturbance, mood disturbance, and anxiety (principal); R19.7 Diarrhea, unspecified
CPT/HCPCS: Q9967

== ENCOUNTER 2024-06-11 15:55 | Outpatient (CLI) | payer MEDICARE, OTHER ==
[~2024-06-11] VITALS: Ht 7.6 cm; Wt 58.5 kg
[~2024-06-11 15:55] MED LIST changes: +CULTURELLE1 EAC1 PO; +PHILLIPS COLON HEALT PO; +SEROQUEL50 MG PO; +ZOLOFT 25MG25 MG PO
[2024-06-11] MEDS ORDERED: DIFICID200 MG PO (16:31)
[2024-06-11 16:32] VITALS: BP 141/60; PULSE 47; TEMP 98.1
[2024-06-11 16:54] LABS: COLLECTION METHOD CATHETER
[2024-06-11 17:02] LABS: URINE APPEARANCE CLEAR (CLEAR/HAZY); URINE BLOOD NEGATIVE (NEGATIVE); URINE COLOR YELLOW (YELLOW); URINE GLUCOSE NEGATIVE (NEGATIVE); URINE KETONE NEGATIVE (NEGATIVE); URINE NITRATE NEGATIVE (NEGATIVE); URINE PROTEIN(semi-quant) TRACE (NEGATIVE); URINE UROBILINOGEN 0.2 E.U/dL (0.2-1.0)
== END 2024-06-11 16:46 | disposition home or self-care (01) ==
LOC: EUO 15:55
PROVIDERS: Family Medicine
DX: R30.0 Dysuria (principal); R82.90 Unspecified abnormal findings in urine